=== PATIENT | female | born 1985 | race Caucasian/White ===

== ENCOUNTER → 2018-06-20 | Outpatient (CLI) | payer OTHER ==
[~2018-06-20] VITALS: Ht 175.3 cm; Wt 87.7 kg
[~2018-06-20] MED LIST: PREN1TAB10 PO; PREN1TAB60 PO; RANI-276 PO
[2018-06-20 13:24] LABS: BASOPHILS # (AUTO) 0.05 x10^3/uL (0-0.1); BASOPHILS % (AUTO) 1 % (0-1); EOSINOPHILS # (AUTO) 0.02 x10^3/uL (0-0.4); EOSINOPHILS % (AUTO) 0 % (1-7); LYMPHOCYTES # (AUTO) 2.02 x10^3/uL (1-3.4); LYMPHOCYTES % (AUTO) 22 % (22-44); MD NO; MEAN CORPUSCULAR HEMOGLOBIN 34.3 pg (27.0-34.8); MEAN CORPUSCULAR HGB CONC 34.8 g/dL (32.4-35.8); MEAN CORPUSCULAR VOLUME 98.7 fL (80-100); MEAN PLATELET VOLUME 8.6 fL (7.4-10.4); MONOCYTES # (AUTO) 0.39 x10^3/uL (0.2-0.8); MONOCYTES % (AUTO) 4 % (2-9); NEUTROPHILS # (AUTO) 6.92 x10^3/uL (1.8-6.8); NEUTROPHILS % (AUTO) 74 % (42-75); PLATELET COUNT 203 x10^3/uL (130-400); RED BLOOD COUNT 4.44 x10^6/uL (3.82-5.3); RED CELL DISTRIBUTION WIDTH 12.6 % (9.6-15.2)
[2018-06-20 13:33] LABS: ALANINE AMINOTRANSFERASE 17 U/L (12-78); ANION GAP 8 mmol/L (5-15); BILIRUBIN, DIRECT 0.1 mg/dL (0.1-0.2); CALCIUM 8.9 mg/dL (8.5-10.1); CHLORIDE 108 mmol/L (98-107)
[2018-06-20 13:36] LABS: ALKALINE PHOSPHATASE 158 U/L (45-117); BILIRUBIN,TOTAL 0.5 mg/dL (0.2-1.0)
[2018-06-20 13:51] VITALS: BP 118/72
[2018-06-20 13:53] LABS: MICROSCOPIC NOT IND
[2018-06-20 14:14] LABS: PROTEIN/CREATININE RATIO,URINE < 234 (0-200); TOTAL PROTEIN,URINE RANDOM < 5 mg/dL (0-12)
== END | disposition home or self-care (01) ==
LOC: LDOP 12:33
PROVIDERS: ATTEND Obstetrics & Gynecology
DX: O62.9 Abnormality of forces of labor, unspecified (principal); Z3A.39 39 weeks gestation of pregnancy
CPT/HCPCS: 36415; 80053; 81003; 82248; 82570; 84156; 84550; 85025

== ENCOUNTER 2018-06-23 03:50 | Inpatient (IN) | payer OTHER ==
[~2018-06-23] VITALS: Ht 175.3 cm; Wt 87.7 kg
[2018-06-23] MEDS ORDERED: D5%-LACTATED RINGERS 1,000 ML IV SCH (09:10)
[2018-06-23] MEDS ORDERED: OXYTOCIN 30U/ 0.9% NaCL 500ML 500 ML IV PRN (09:10)
[2018-06-23] MEDS ORDERED: OXYTOCIN 30U/ 0.9% NaCL 500ML 500 ML IV ONE (09:10)
[2018-06-23] MEDS ORDERED: FENTANYL PF 100 MCG/2ML IVPush PRN (09:30)
[2018-06-23] MEDS ORDERED: FENTANYL PF 100 MCG/2ML IV PRN (09:30)
[2018-06-23] MEDS ORDERED: ONDANSETRON 2MG/ML, 2ML IVPush PRN ×2 (09:30→22:00)
[2018-06-23] MEDS ORDERED: CALCIUM CARBONATE 500 MG TAB.CHEW PO PRN (09:30)
[2018-06-23] MEDS ORDERED: MISOPROSTOL 25 MCG TABLET VG PRN (09:30)
[2018-06-23] MEDS ORDERED: LIDOCAINE/PF 1%, 30ML ONE (09:37)
[2018-06-23] MEDS ORDERED: MISOPROSTOL 25 MCG TABLET ONE (09:37)
[2018-06-23] MEDS ORDERED: NEWBORN KIT ONE (09:37)
[2018-06-23] MEDS ORDERED: MISOPROSTOL 200 MCG TABLET ONE (09:38)
[2018-06-23] MEDS ORDERED: OXYTOCIN 30U/ 0.9% NaCL 500ML 500 ML ONE (09:38)
[2018-06-23 09:40] LABS: BASOPHILS # (AUTO) 0.09 x10^3/uL (0-0.1); BASOPHILS % (AUTO) 1 % (0-1); EOSINOPHILS # (AUTO) 0.02 x10^3/uL (0-0.4); EOSINOPHILS % (AUTO) 0 % (1-7); LYMPHOCYTES # (AUTO) 1.77 x10^3/uL (1-3.4); LYMPHOCYTES % (AUTO) 23 % (22-44); MD NO; MEAN CORPUSCULAR HEMOGLOBIN 33.9 pg (27.0-34.8); MEAN CORPUSCULAR HGB CONC 34.3 g/dL (32.4-35.8); MEAN CORPUSCULAR VOLUME 98.8 fL (80-100); MEAN PLATELET VOLUME 8.5 fL (7.4-10.4); MONOCYTES # (AUTO) 0.38 x10^3/uL (0.2-0.8); MONOCYTES % (AUTO) 5 % (2-9); NEUTROPHILS # (AUTO) 5.47 x10^3/uL (1.8-6.8); NEUTROPHILS % (AUTO) 71 % (42-75); PLATELET COUNT 198 x10^3/uL (130-400); RED BLOOD COUNT 4.22 x10^6/uL (3.82-5.3); RED CELL DISTRIBUTION WIDTH 12.8 % (9.6-15.2)
[2018-06-23] MEDS: LACTATED RINGERS 1,000 ML IV SCH ×3 (09:41→20:30)
[2018-06-23 11:21] VITALS: BP 119/68
[2018-06-23] MEDS ORDERED: LACTATED RINGERS 1,000 ML INTUTE PRN (19:30)
[2018-06-23] MEDS ORDERED: LACTATED RINGERS 1,000 ML INTUTE SCH (19:30)
[2018-06-23] MEDS ORDERED: FENTANYL/BUPIV./NS/PF 250 ML EPIDCONT SCH ×2 (20:06→21:32)
[2018-06-23] MEDS ORDERED: FENTANYL PF 500 MCG, BUPIVACAINE/PF 0.5%, 30ML 62.5 ML in SODIUM CHLORIDE 0.9% 177.5 ML EPIDCONT SCH (20:30)
[2018-06-23] MEDS ORDERED: BUPIVACAINE 0.25% ONE (20:46)
[2018-06-23] MEDS ORDERED: FENTANYL PF 100 MCG/2ML ONE (20:46)
[2018-06-23] MEDS ORDERED: EPHEDRINE 50 MG/ML, 1ML ONE (20:48)
[2018-06-23] MEDS ORDERED: LACTATED RINGERS 1,000 ML IV SCH (21:32)
[2018-06-23] MEDS ORDERED: EPHEDRINE 50 MG/ML, 1ML IVPush PRN (22:00)
[2018-06-23] MEDS ORDERED: LACTATED RINGERS 1,000 ML IVBOLUS PRN (22:00)
[2018-06-24] MEDS ORDERED: ONDANSETRON 2MG/ML, 2ML IV PRN (01:30)
[2018-06-24] MEDS ORDERED: OXYcodone/APAP 5/325MG TABLET PO PRN (01:30)
[2018-06-24] MEDS ORDERED: MISOPROSTOL 200 MCG TABLET PR PRN (01:30)
[2018-06-24] MEDS ORDERED: METHYLERGONOVINE 0.2 MG/ML IM PRN (01:30)
[2018-06-24] MEDS ORDERED: CALCIUM CARBONATE 500 MG TAB.CHEW PO PRN (01:30)
[2018-06-24] MEDS ORDERED: OXYTOCIN 30U/ 0.9% NaCL 500ML 500 ML ONE (02:09)
[2018-06-24] MEDS ORDERED: IBUPROFEN 600 MG TABLET ONE (02:09)
[2018-06-24] MEDS: OXYTOCIN 30U/ 0.9% NaCL 500ML 500 ML IV SCH ×3 (02:16→13:04)
[2018-06-24] MEDS: IBUPROFEN 600 MG TABLET PO PRN ×3 (02:17→21:48)
[2018-06-24 03:31] VITALS: BP 109/67
[2018-06-24] MEDS: DOCUSATE 100 MG CAPSULE PO PRN (07:13)
[2018-06-24] MEDS: OXYcodone/APAP 5/325MG TABLET PO PRN ×2 (07:14→17:56)
[2018-06-24 07:15] VITALS: BP 127/85
[2018-06-24] MEDS: PRENATAL VIT/IRON/FA 1 EACH TABLET PO SCH (09:00)
[2018-06-24 12:35] VITALS: BP 108/71
[2018-06-24 14:52] LABS: BASOPHILS # (AUTO) 0.12 x10^3/uL (0-0.1); BASOPHILS % (AUTO) 1 % (0-1); EOSINOPHILS # (AUTO) 0.06 x10^3/uL (0-0.4); EOSINOPHILS % (AUTO) 1 % (1-7); LYMPHOCYTES # (AUTO) 1.82 x10^3/uL (1-3.4); LYMPHOCYTES % (AUTO) 18 % (22-44); MD NO; MEAN CORPUSCULAR HEMOGLOBIN 34.5 pg (27.0-34.8); MEAN CORPUSCULAR HGB CONC 34.3 g/dL (32.4-35.8); MEAN CORPUSCULAR VOLUME 100.7 fL (80-100); MEAN PLATELET VOLUME 8.4 fL (7.4-10.4); MONOCYTES # (AUTO) 0.68 x10^3/uL (0.2-0.8); MONOCYTES % (AUTO) 7 % (2-9); NEUTROPHILS # (AUTO) 7.33 x10^3/uL (1.8-6.8); NEUTROPHILS % (AUTO) 73 % (42-75); PLATELET COUNT 181 x10^3/uL (130-400); RED BLOOD COUNT 3.84 x10^6/uL (3.82-5.3); RED CELL DISTRIBUTION WIDTH 12.8 % (9.6-15.2)
[2018-06-24 15:55] VITALS: BP 117/77
[2018-06-24 19:25] VITALS: BP 112/74
[2018-06-25 00:35] VITALS: BP 110/71
[2018-06-25] MEDS: IBUPROFEN 600 MG TABLET PO PRN ×2 (06:22→14:15)
[2018-06-25] MEDS: OXYcodone/APAP 5/325MG TABLET PO PRN ×3 (06:22→16:23)
[2018-06-25] MEDS: OXYTOCIN 30U/ 0.9% NaCL 500ML 500 ML IV SCH (07:18)
[2018-06-25 08:00] VITALS: BP 119/77
[2018-06-25] MEDS: DOCUSATE 100 MG CAPSULE PO PRN (08:20)
[2018-06-25] MEDS: PRENATAL VIT/IRON/FA 1 EACH TABLET PO SCH (08:22)
[2018-06-25] MEDS ORDERED: IBUP-1222 PO (15:05)
[2018-06-25] MEDS ORDERED: OXYC-302 PO (15:07)
== END 2018-06-25 16:30 | disposition home or self-care (01) | DRG 807 ==
LOC: LDIP 08:41 → 2NW 06-24 03:14
PROVIDERS: ADMIT Obstetrics & Gynecology; ATTEND Obstetrics & Gynecology
PROC: 0HQ9XZZ Repair Perineum Skin, External Approach (ICD-10-PCS; principal; 2018-06-23)
PROC: 10E0XZZ Delivery of Products of Conception, External Approach (ICD-10-PCS; 2018-06-23)
PROC: 3E0R3BZ Introduction of Anesthetic Agent into Spinal Canal, Percutaneous Approach (ICD-10-PCS; 2018-06-23)
PROC: 00HU33Z Insertion of Infusion Device into Spinal Canal, Percutaneous Approach (ICD-10-PCS; 2018-06-23)
PROC: 3E033VJ Introduction of Other Hormone into Peripheral Vein, Percutaneous Approach (ICD-10-PCS; 2018-06-23)
PROC: 10907ZC Drainage of Amniotic Fluid, Therapeutic from Products of Conception, Via Natural or Artificial Opening (ICD-10-PCS; 2018-06-23)
DX: O36.5930 Maternal care for other known or suspected poor fetal growth, third trimester, not applicable or unspecified (principal); Z37.0 Single live birth; Z3A.39 39 weeks gestation of pregnancy; O43.123 Velamentous insertion of umbilical cord, third trimester; O69.89X0 Labor and delivery complicated by other cord complications, not applicable or unspecified; O70.0 First degree perineal laceration during delivery; O76 Abnormality in fetal heart rate and rhythm complicating labor and delivery; Z83.3 Family history of diabetes mellitus; Z88.0 Allergy status to penicillin; Z88.8 Allergy status to other drugs, medicaments and biological substances
CPT/HCPCS: 36415; J7121; 85025; 86850; 86900; G0378; J3010; J3490; J2590; J7050; J7120